=== PATIENT | female | born 2005 | race Caucasian/White ===

== ENCOUNTER 2024-03-10 21:21 | Emergency (ER) | payer BC ==
[~2024-03-10 21:21] MED LIST: Iopamidol 370 76% 100 ML VIAL ONE
[2024-03-10] MEDS ORDERED: Ondansetron PF 4 MG/2 ML Vial ONE (23:56)
[2024-03-10] MEDS ORDERED: Ketorolac Tromethamine 30 MG (1 mL) VIAL ONE (23:56)
[2024-03-10] MEDS ORDERED: Dexamethasone 10 MG/ML VIAL ONE (23:56)
[2024-03-11 01:02] LABS: #Basophils Less than 0.03 10x3/uL (0.0-0.2); #Eosinphils Less than 0.03 10x3/uL (0.0-0.7); %Basophils 0.3 % (0.0-1.0); %Eosinophils 0.3 % (0.0-10.0); %Lymphocytes 21.2 % (28.0-48.0); %Monocytes 6.7 % (0.0-4.0); %Neutrophils 71.4 % (31.0-61.0); Hematocrit 37.6 % (36.0-47.0); Hemoglobin 12.5 g/dL (12.0-16.0); Mean Corpuscular HGB CONC 33.2 g/dL (32.0-36.0); Mean Corpuscular Hemoglobin 27.6 pg (25.0-35.0); Mean Platelet Volume 9.1 fL (7.4-10.4); Platelet Count 231 10x3/uL (130-400); RBC Distribution Width 13.3 % (11.5-14.5); Red Blood Cell (RBC) Count 4.53 mill/uL (4.00-5.20)
[2024-03-11 01:17] LABS: BHCG - Serum Negative (NEGATIVE); Pregs Control Background? CLEAR/WHITE (CLR/WHITE); Pregs Control Bar Appear? YES (CONTROL BAR)
[2024-03-11 01:23] LABS: ALT (SGPT) 14 U/L (8-55); AST (SGOT) 19 U/L (5-30); Albumin 4.6 g/dL (3.5-5.0); Alkaline Phosphatase 57 U/L (40-100); Anion Gap 16 mmol/L (10-20); BUN (Urea Nitrogen) 13 mg/dL (8.4-21.0); Bilirubin, Total 0.7 mg/dL (0.2-1.2); Calc. Creatinine Clearance 0 mL/min (70-130); Calcium 9.7 mg/dL (7.8-10.44); Carbon Dioxide 24 mmol/L (22-29); Chloride 104 mmol/L (98-107); Estimated GFR 110; Globulin 3.5 g/dL (2.4-3.5); Glucose 89 mg/dL (70-105); Potassium 3.6 mmol/L (3.5-5.1); Protein, Total 8.1 g/dL (6.0-8.3); Sodium 140 mmol/L (136-145)
== END 2024-03-11 03:54 | disposition home or self-care (01) ==
LOC: ERS 21:21
DX: J02.9 Acute pharyngitis, unspecified (principal); B27.90 Infectious mononucleosis, unspecified without complication; R13.10 Dysphagia, unspecified
CPT/HCPCS: 70491; 80053; 84703; 85025; J1100; J1885; J2405

== ENCOUNTER 2024-03-12 00:48 | Inpatient (IN) | payer BC ==
[2024-03-12 01:50] VITALS: BMI 23.6
[2024-03-12] MEDS ORDERED: Ondansetron PF 4 MG/2 ML Vial IVP PRN (02:34)
[2024-03-12] MEDS ORDERED: Acetaminophen 650 MG Suppository PR PRN (02:34)
[2024-03-12] MEDS ORDERED: Ondansetron ODT 4 MG TAB PO PRN (02:34)
[2024-03-12] MEDS ORDERED: Acetaminophen 325 MG TAB PO PRN (02:34)
[2024-03-12] MEDS: Dextrose 5 % And 0.9 % NaCl 1,000 ML IV SCH (03:41)
[2024-03-12 07:19] LABS: #Basophils Less than 0.03 10x3/uL (0.0-0.2); #Eosinphils Less than 0.03 10x3/uL (0.0-0.7); %Basophils 0.1 % (0.0-1.0); %Lymphocytes 9.6 % (28.0-48.0); %Monocytes 3.1 % (0.0-4.0); Hematocrit 35.1 % (36.0-47.0); Hemoglobin 11.6 g/dL (12.0-16.0); Mean Corpuscular Hemoglobin 28.1 pg (25.0-35.0); Mean Platelet Volume 9.6 fL (7.4-10.4); Platelet Count 216 10x3/uL (130-400); RBC Distribution Width 13.4 % (11.5-14.5); Red Blood Cell (RBC) Count 4.13 mill/uL (4.00-5.20)
[2024-03-12 08:03] LABS: Anion Gap 11 mmol/L (10-20); BUN (Urea Nitrogen) 17 mg/dL (8.4-21.0); Calc. Creatinine Clearance 132 mL/min (70-130); Carbon Dioxide 22 mmol/L (22-29); Chloride 109 mmol/L (98-107); Estimated GFR 116; Glucose 147 mg/dL (70-105); Potassium 4.1 mmol/L (3.5-5.1); Sodium 138 mmol/L (136-145)
[2024-03-12] MEDS ORDERED: PROPOFOL 40 ML ONE (15:07)
[2024-03-12] MEDS ORDERED: Lidocaine 2% PF 5 ML VIAL ONE (15:09)
[2024-03-12] MEDS ORDERED: PHENYLEPHRINE-NS 100 MCG/ML 10 ML SYRINGE ONE (15:22)
[2024-03-13] MEDS: Fluconazole 100 MG TAB PO SCH (08:37)
[2024-03-13] MEDS ORDERED: Magnevist 469MG/ML 20 ML VIAL ONE ×2 (11:55)
[2024-03-13] MEDS ORDERED: Iopamidol 370 76% 100 ML VIAL ONE (11:57)
[2024-03-13] MEDS: Lactated Ringer's 1,000 ML IV SCH (15:25)
[2024-03-13] MEDS: Pyridostigmine Bromide IR 60 MG TAB PO SCH (15:25)
[2024-03-14] MEDS: Pyridostigmine Bromide IR 60 MG TAB PO SCH (15:56)
[2024-03-15 08:40] VITALS: BP 108/69; TEMP 97.6
== END 2024-03-15 13:56 | disposition home or self-care (01) | DRG 57 ==
LOC: T4-B 01:38 → OBSVTOIN 13:50
PROVIDERS: ADMIT Student in an Organized Health Care Education/Training Program; ATTEND Hospitalist
PROC: 0DB58ZX Excision of Esophagus, Via Natural or Artificial Opening Endoscopic, Diagnostic (ICD-10-PCS; principal; 2024-03-12)
DX: G70.00 Myasthenia gravis without (acute) exacerbation (principal); B27.90 Infectious mononucleosis, unspecified without complication; R47.1 Dysarthria and anarthria; E04.1 Nontoxic single thyroid nodule; R13.12 Dysphagia, oropharyngeal phase; Z88.8 Allergy status to other drugs, medicaments and biological substances
CPT/HCPCS: 36415; 70491; 70553; 71260; 72156; 76376; 76536; 80048; 80053; 83519; 83735; 84145; 84443; 84703; 85025; 86140; 86308; 87081; 87430; 88305; 88312; 96374; 96375; A9579; G0378; J1100; J1885; J2001; J2405; J2704; J7042; J7120; Q9967